=== PATIENT | female | born 1945 | race African-American/Black ===

== ENCOUNTER 2019-03-30 08:38 | Outpatient (CLI) | payer MEDICARE ==
--- NOTE | 2019-03-30 09:21 | ULT ---
Exam: Abdominal aortic ultrasound HISTORY: Screening study. COMPARISON: none TECHNIQUE: Grayscale, color flow, Doppler imaging and spectral waveform analysis performed of the aor ta FINDINGS: No evidence of aneurysmal dilatation. Proximal aorta measures 1.6 cm, mid aorta measures 1.3 cm and d istal aorta measures 1.1 cm Limited evaluation of the aortic bifurcation Scattered atherosclerotic plaque IMPRESSION: Scattered atherosclerotic plaque. No evidence of aneurysm.
== END 2019-03-30 08:39 | disposition home or self-care (01) ==
LOC: ULT 08:38 → BICULT 08:39
PROVIDERS: ATTEND Family Medicine
DX: Z13.6 Encounter for screening for cardiovascular disorders (principal); Z23 Encounter for immunization; I70.0 Atherosclerosis of aorta
CPT/HCPCS: 76775

== ENCOUNTER 2019-10-10 14:15 | Outpatient (CLI) | payer MEDICARE ==
--- NOTE | 2019-10-10 14:48 | RAD ---
EXAM: 2 views of the right hip HISTORY: Right hip pain COMPARISON: 08/10/2008 FINDINGS: 2 views of the right hip shows no evidence of acute fracture or dislocation. Severe degener ative changes are seen. There is joint space narrowing, osteophyte formation, and subchondral cystic formation. No soft tissue swelling is present. IMPRESSION: Severe right hip osteoarthritis
== END 2019-10-10 14:16 | disposition home or self-care (01) ==
LOC: BICRAD 14:15
PROVIDERS: ATTEND Family Medicine
DX: M25.551 Pain in right hip (principal); M16.11 Unilateral primary osteoarthritis, right hip

== ENCOUNTER 2023-02-10 13:40 | Outpatient (CLI) | payer OTHER | END 2023-02-10 13:41 | disposition home or self-care (01) | LOC: BICMAMMO 13:40 | PROVIDERS: ATTEND Family Medicine | DX: Z12.31 Encounter for screening mammogram for malignant neoplasm of breast (principal) | CPT/HCPCS: 77063; 77067 ==

== ENCOUNTER 2023-02-13 10:15 | Outpatient (CLI) | payer OTHER | END 2023-02-13 10:16 | disposition home or self-care (01) | LOC: PET 10:15 | PROVIDERS: ATTEND Internal Medicine | DX: R91.8 Other nonspecific abnormal finding of lung field (principal); C34.32 Malignant neoplasm of lower lobe, left bronchus or lung; R59.0 Localized enlarged lymph nodes | CPT/HCPCS: 78815; A9552 ==

== ENCOUNTER 2023-02-25 08:40 | Day surgery (SDC) | payer OTHER ==
[2023-02-20 15:05] VITALS: BMI 24.7
[2023-02-25] MEDS ORDERED: Lidocaine 4% PF 5 ML AMP ONE (09:51)
[2023-02-25 10:21] LABS: Anion Gap 13 mmol/L (10-20); BUN (Urea Nitrogen) 8 mg/dL (9.8-20.1); Calc. Creatinine Clearance 89 mL/min (70-130); Calcium 10.4 mg/dL (7.8-10.44); Carbon Dioxide 25 mmol/L (23-31); Chloride 104 mmol/L (98-107); Estimated GFR 93; Glucose 128 mg/dL (83-110); Potassium 4.3 mmol/L (3.5-5.1); Sodium 138 mmol/L (136-145)
[2023-02-25] MEDS ORDERED: SUGAMMADEX SODIUM 200 MG/2 ML VIAL ONE (10:40)
[2023-02-25] MEDS ORDERED: Midazolam HCl 2 mg/2 ml Vial ONE (10:41)
[2023-02-25] MEDS ORDERED: fentaNYL PF 100 MCG/2 ML SYRINGE ONE (10:41)
[2023-02-25] MEDS ORDERED: Rocuronium Bromide 10 MG/ML (10ML VIAL) ONE (11:16)
[2023-02-25] MEDS ORDERED: PROPOFOL 200 MG/20 ML VIAL ONE (11:16)
[2023-02-25] MEDS ORDERED: Lidocaine 1% PF 5 ML VIAL ONE (11:16)
[2023-02-25] MEDS ORDERED: Ondansetron PF 4 MG/2 ML Vial ONE (11:16)
[2023-02-25] MEDS ORDERED: HYDROmorphone 2 MG/ML VIAL SLOW IVP PRN (12:23)
[2023-02-25] MEDS ORDERED: Promethazine HCl 25 MG/ML VIAL IM PRN (12:23)
[2023-02-25] MEDS ORDERED: Ondansetron HCl/PF 4 MG/2 ML Vial IVP PRN (12:23)
[2023-02-25] MEDS ORDERED: fentaNYL 50 mcg/mL 1 mL Vial ONE (12:47)
== END 2023-02-25 15:00 | disposition home or self-care (01) ==
LOC: SDC 08:40
PROVIDERS: ATTEND Internal Medicine
PROC: 0B9J8ZX Drainage of Left Lower Lung Lobe, Via Natural or Artificial Opening Endoscopic, Diagnostic (ICD-10-PCS; principal; 2023-02-25)
PROC: 0BBB8ZX Excision of Left Lower Lobe Bronchus, Via Natural or Artificial Opening Endoscopic, Diagnostic (ICD-10-PCS; 2023-02-25)
PROC: 07B74ZX Excision of Thorax Lymphatic, Percutaneous Endoscopic Approach, Diagnostic (ICD-10-PCS; 2023-02-25)
DX: C34.32 Malignant neoplasm of lower lobe, left bronchus or lung (principal); R59.0 Localized enlarged lymph nodes; I10 Essential (primary) hypertension; E78.5 Hyperlipidemia, unspecified; E11.9 Type 2 diabetes mellitus without complications; F17.210 Nicotine dependence, cigarettes, uncomplicated; Z91.09 Other allergy status, other than to drugs and biological substances; Z90.710 Acquired absence of both cervix and uterus; Z79.84 Long term (current) use of oral hypoglycemic drugs; Z79.899 Other long term (current) drug therapy; Z79.82 Long term (current) use of aspirin
CPT/HCPCS: 31624; 31652; 31654; 80048; J3010; 88112; 88172; 88173; 88177; 88305; 88341; 88342; J2250; J2405; J2704

== ENCOUNTER 2023-05-27 09:40 | Outpatient (CLI) | payer OTHER | END 2023-05-27 09:41 | disposition home or self-care (01) | LOC: SCSMRI 09:40 | PROVIDERS: ATTEND Internal Medicine | DX: C34.32 Malignant neoplasm of lower lobe, left bronchus or lung (principal); H05.9 Unspecified disorder of orbit; I67.89 Other cerebrovascular disease | CPT/HCPCS: 70553 ==

== ENCOUNTER 2023-06-11 11:00 | Outpatient (CLI) | payer OTHER | END 2023-06-11 11:01 | disposition home or self-care (01) | LOC: PET 11:00 | PROVIDERS: ATTEND Internal Medicine Hematology & Oncology | DX: C34.32 Malignant neoplasm of lower lobe, left bronchus or lung (principal) | CPT/HCPCS: 78815; A9552 ==

== ENCOUNTER 2023-08-31 07:53 | Outpatient (CLI) | payer OTHER | END 2023-08-31 07:54 | disposition home or self-care (01) | LOC: BICCT 07:53 | PROVIDERS: ATTEND Internal Medicine | DX: C34.32 Malignant neoplasm of lower lobe, left bronchus or lung (principal); R91.8 Other nonspecific abnormal finding of lung field | CPT/HCPCS: 71260; 74177 ==

== ENCOUNTER 2024-02-15 15:27 | Outpatient (CLI) | payer OTHER ==
[~2024-02-15 15:27] MED LIST: Iopamidol 370 76% 100 ML VIAL ONE
== END 2024-02-15 15:28 | disposition home or self-care (01) ==
LOC: CT 15:27
PROVIDERS: ATTEND Internal Medicine
DX: C34.32 Malignant neoplasm of lower lobe, left bronchus or lung (principal); K59.00 Constipation, unspecified; J43.9 Emphysema, unspecified; R91.8 Other nonspecific abnormal finding of lung field; J98.4 Other disorders of lung; I70.0 Atherosclerosis of aorta; E04.9 Nontoxic goiter, unspecified; K44.9 Diaphragmatic hernia without obstruction or gangrene; M47.819 Spondylosis without myelopathy or radiculopathy, site unspecified; M16.0 Bilateral primary osteoarthritis of hip; M43.16 Spondylolisthesis, lumbar region
CPT/HCPCS: 71260; 74177

== ENCOUNTER 2024-05-12 13:34 | Outpatient (CLI) | payer OTHER | END 2024-05-12 13:35 | disposition home or self-care (01) | LOC: BICMAMMO 13:34 | PROVIDERS: ATTEND Family Medicine | DX: Z12.31 Encounter for screening mammogram for malignant neoplasm of breast (principal); Z80.3 Family history of malignant neoplasm of breast; Z85.118 Personal history of other malignant neoplasm of bronchus and lung | CPT/HCPCS: 77063; 77067 ==

== ENCOUNTER 2024-05-17 12:59 | Outpatient (CLI) | payer OTHER | END 2024-05-17 13:00 | disposition home or self-care (01) | LOC: CT 12:59 | PROVIDERS: ATTEND Internal Medicine | DX: C34.32 Malignant neoplasm of lower lobe, left bronchus or lung (principal); D51.8 Other vitamin B12 deficiency anemias | CPT/HCPCS: 71260; 74177; Q9967 ==

== ENCOUNTER 2025-04-17 14:00 | Outpatient (CLI) | payer OTHER ==
[2025-04-17 14:33] LABS: Estimated GFR - POC 88.0
== END 2025-04-17 14:01 | disposition home or self-care (01) ==
LOC: EEVIPCON 14:00 → CT 14:00
PROVIDERS: ATTEND Internal Medicine
DX: C34.32 Malignant neoplasm of lower lobe, left bronchus or lung (principal); D51.8 Other vitamin B12 deficiency anemias; R91.8 Other nonspecific abnormal finding of lung field; J84.10 Pulmonary fibrosis, unspecified; J43.9 Emphysema, unspecified; I70.0 Atherosclerosis of aorta; I25.10 Atherosclerotic heart disease of native coronary artery without angina pectoris; K44.9 Diaphragmatic hernia without obstruction or gangrene; E04.2 Nontoxic multinodular goiter; K76.0 Fatty (change of) liver, not elsewhere classified; R16.0 Hepatomegaly, not elsewhere classified; K86.89 Other specified diseases of pancreas; I70.8 Atherosclerosis of other arteries; M16.0 Bilateral primary osteoarthritis of hip; M47.819 Spondylosis without myelopathy or radiculopathy, site unspecified; M19.012 Primary osteoarthritis, left shoulder; M19.011 Primary osteoarthritis, right shoulder; Z90.710 Acquired absence of both cervix and uterus
CPT/HCPCS: 36415; 71260; 74177; 82565; Q9967